=== PATIENT | female | born 1990 | race Caucasian/White ===

== ENCOUNTER → 2017-12-07 | Emergency (ER) | payer OTHER ==
[~2017-12-07] VITALS: Ht 154.9 cm; Wt 81.2 kg
[~2017-12-07] MED LIST: CITRANATAL B-C1 EAC1; ELOCON45 G1 TP; PRENATAL 19 TA1 EACH
== END | disposition home or self-care (01) ==
LOC: ER 04:25
DX: O20.0 Threatened abortion (principal); Z34.01 Encounter for supervision of normal first pregnancy, first trimester

== ENCOUNTER 2018-02-21 07:19 | Emergency (ER) | payer OTHER ==
[~2018-02-21] VITALS: Ht 154.9 cm; Wt 82.6 kg
== END 2018-02-21 09:28 | disposition home or self-care (01) ==
LOC: ER 07:19
DX: Z34.02 Encounter for supervision of normal first pregnancy, second trimester (principal); S80.02XA Contusion of left knee, initial encounter; S80.01XA Contusion of right knee, initial encounter; W18.39XA Other fall on same level, initial encounter; Y93.89 Activity, other specified; Y92.098 Other place in other non-institutional residence as the place of occurrence of the external cause; Y99.8 Other external cause status

== ENCOUNTER 2018-06-10 23:49 | Outpatient (CLI) | payer OTHER | END 2018-06-11 15:00 | disposition home or self-care (01) | LOC: OBS/DEL 23:49 | DX: O60.03 Preterm labor without delivery, third trimester (principal); Z34.83 Encounter for supervision of other normal pregnancy, third trimester ==

== ENCOUNTER 2018-07-24 03:23 | Inpatient (IN) | payer OTHER ==
[~2018-07-24] VITALS: Ht 154.9 cm; Wt 108.9 kg
[2018-07-24] MEDS ORDERED: FOLIC ACID1 MG PO (04:21)
== END 2018-07-26 18:43 | disposition home or self-care (01) | DRG 775 ==
LOC: OB/GYN 03:23 → LDR 03:23 → OB/GYN 17:10
PROC: 0KQM0ZZ Repair Perineum Muscle, Open Approach (ICD-10-PCS; principal; 2018-07-24)
PROC: 10E0XZZ Delivery of Products of Conception, External Approach (ICD-10-PCS; 2018-07-24)
PROC: 4A1HXCZ Monitoring of Products of Conception, Cardiac Rate, External Approach (ICD-10-PCS; 2018-07-24)
PROC: 4A033R1 Measurement of Arterial Saturation, Peripheral, Percutaneous Approach (ICD-10-PCS; 2018-07-24)
DX: O70.1 Second degree perineal laceration during delivery (principal); Z37.0 Single live birth; Z3A.39 39 weeks gestation of pregnancy

== ENCOUNTER 2020-09-16 10:00 | Day surgery (SDC) | payer OTHER ==
[~2020-09-16 10:00] MED LIST changes: +FOLIC ACID1 MG PO
== END 2020-09-16 21:10 | disposition home or self-care (01) ==
LOC: CIR.AMB 10:00
PROVIDERS: ATTEND Specialist
DX: T83.89XA Other specified complication of genitourinary prosthetic devices, implants and grafts, initial encounter (principal); Z20.828 Contact with and (suspected) exposure to other viral communicable diseases